=== PATIENT | female | born 1945 ===

== ENCOUNTER 2016-12-03 09:23 | Emergency (ER) | payer MEDICARE ==
[2016-12-03 09:29] VITALS: BMI 40.2
[2016-12-03 09:30] VITALS: BP 121/69; PULSE 74; RESP 19; TEMP 99.3; O2SAT 96
--- NOTE | 2016-12-03 09:58 | ED PDOC ---
Lower Extremity Pain/Injury Time Seen by Provider: 12/03/16 09:40 Chief Complaint (Nursing): Lower Extremity Problem/Injury Chief Complaint (Provider): right ankle pain History Per: Patient History/Exam Limitations: no limitations Onset/Duration Of Symptoms: Days (x3) Current Symptoms Are (Timing): Still Present Severity: Mild Additional Complaint(s): Patient is a 71 year old female presenting to the ED complaining of right ankle pain status post mechanical fall x3 days ago. Patient reports she twisted her right ankle and fell. Patient is ambulatory with pain. Patient has been taking Meloxicam without relief. Denies head trauma. PMD: none - Ankle/Foot Description Of Injury: Fell, Twisted Past Medical History Reviewed: Historical Data, Nursing Documentation, Vital Signs Vital Signs: Last Vital Signs Temp 99.3 F 12/03/16 09:29 Pulse 74 12/03/16 09:29 Resp 19 12/03/16 09:29 BP 121/69 12/03/16 09:29 Pulse Ox 96 12/03/16 09:29 - Medical History PMH: Diabetes, HTN, Hypercholesterolemia Denies: Chronic Kidney Disease - Surgical History Surgical History: Appendectomy - Family History Family History: States: Unknown Family Hx - Home Medications Home Medications: Ambulatory Orders Medication Instructions Recorded Naproxen [Naprosyn] 500 mg PO Q12H PRN #10 tablet 12/03/16 - Allergies Allergies/Adverse Reactions: Allergies Allergy/AdvReac Type Severity Reaction Status Date / Time No Known Allergies Allergy Verified 06/29/16 09:02 Review of Systems ROS Statement: Except As Marked, All Systems Reviewed And Found Negative Constitutional: Negative for: Fever Musculoskeletal: Positive for: Other (rt ankle) Physical Exam - Reviewed Nursing Documentation Reviewed: Yes Vital Signs Reviewed: Yes - Physical Exam Appears: Positive for: Well, Non-toxic, No Acute Distress Head Exam: Positive for: ATRAUMATIC, NORMAL INSPECTION, NORMOCEPHALIC Skin: Positive for: Normal Color, Warm, DRY Neck: Positive for: Normal, Painless ROM Pulses-Dorsalis Pedis (R): 2+ Extremity: Positive for: Tenderness (mild tenderness over the right lateral malleolus -No tend over the base of the 5th metatarsal, medial mal, fibular head, or dorsal aspect of the foot), Swelling (mild edema over the right lateral malleolus), Other (mild edema n dtend over lateral malleousous). Negative for: Normal ROM (mildly reduced ROM secondary to pain), Deformity Neurologic/Psych: Positive for: Alert, Oriented - ECG O2 Sat by Pulse Oximetry: 96 (RA) Pulse Ox Interpretation: Normal Medical Decision Making Medical Decision Making: GILDARDO wrap RICE nsaid pcp f/u PROCEDURE: Right ankle dated the 12/03/2016 HISTORY: fell 3 days ago COMPARISON: Comparison made with prior radiographs of the right ankle dated 03/30/2009. FINDINGS: BONES: The current study reveals no definitive radiographic evidence of acute displaced fracture nor dislocation. . The osseous structures including talar dome appear intact. . JOINTS: No significant osteoarthritis. Ankle mortise maintained. . SOFT TISSUES: There is mild to moderate soft tissue swelling lateral greater than medial. OTHER FINDINGS: None. IMPRESSION: No acute fractures. Mild thumb moderate soft tissue swelling lateral greater than medial. Scribe Attestation: Documented by Everett Pizano acting as a scribe for Austen Durán MD. Scribe Attestation: All medical record entries made by the Scribe were at my direction and personally dictated by me. I have reviewed the chart and agree that the record accurately reflects my personal performance of the history, physical exam, medical decision making, and the department course for this patient. I have also personally directed, reviewed, and agree with the discharge instructions and disposition. Disposition - Clinical Impression Clinical Impression: Ankle sprain - Disposition Disposition Time: 11:56 Condition: STABLE Additional Instructions: Please follow up with your doctor. Return to the ER for any worsening symptoms or for any other concerns. Prescriptions: Naproxen [Naprosyn] 500 mg PO Q12H PRN #10 tablet PRN Reason: Pain, Moderate (4-7) Instructions: Ankle Sprain (ED) Print Language: BRITISH
--- NOTE | 2016-12-03 11:39 | RAD ---
PROCEDURE: Right ankle dated the 12/03/2016 HISTORY: fell 3 days ago COMPARISON: Comparison made with prior radiographs of the right ankle dated 03/30/2009. FINDINGS: BONES: The current study reveals no definitive radiographic evidence of acute displaced fracture nor dislocation. . The osseous structures including talar dome appear intact. . JOINTS: No significant osteoarthritis. Ankle mortise maintained. . SOFT TISSUES: There is mild to moderate soft tissue swelling lateral greater than medial. OTHER FINDINGS: None. IMPRESSION: No acute fractures. Mild thumb moderate soft tissue swelling lateral greater than medial.
== END 2016-12-03 12:20 | disposition home or self-care (01) ==
LOC: H.ER 09:23
DX: S93.401A Sprain of unspecified ligament of right ankle, initial encounter (principal); W19.XXXA Unspecified fall, initial encounter; Y92.89 Other specified places as the place of occurrence of the external cause; E11.9 Type 2 diabetes mellitus without complications; E78.00 Pure hypercholesterolemia, unspecified; I10 Essential (primary) hypertension

== ENCOUNTER 2018-10-01 22:18 | Inpatient (IN) | payer MEDICARE ==
[2018-10-01] MEDS ORDERED: Sodium Chloride 0.9% 1,000 ML IV STA (23:01)
--- NOTE | 2018-10-01 23:03 | ED PDOC ---
Hyperglycemia/Hypoglycemia Time Seen by Provider: 10/01/18 22:45 Chief Complaint (Nursing): High Blood Sugar Chief Complaint (Provider): high blood surgar History Per: Patient, Bell Maker (humza #[id number]) History/Exam Limitations: no limitations Onset/Duration Of Symptoms: Hrs Current Symptoms Are (Timing): Better Current Diabetic Medications: Oral Medication Causative (Exacerbating) Factor(s): Recent Steroids : The patient does not have any of the infectious symptoms listed except for those marked. Additional Complaint(s): 73 y/o female presents for evaluation of high blood sugar x 5 hours. Patient states she got an "injection" in her back today for chronic back pain, and reports her sugars at home since then have been elevated, as high as 650. Patient states she took an extra dose of her Janumet 50/1000mg and an Metformin 500mg at 18:30, then again at 19:30, then again at 20:30 because glucose was not coming down so she decided to come to the ED. Patient denies he adache, dizziness, vision changes, extremity numbness/weakness, nausea/vomiting, chest pain, shortness of breath, palpitations, abdominal pain, urinary symptoms. Past Medical History Reviewed: Historical Data, Nursing Documentation, Vital Signs Vital Signs: Last Vital Signs Temp 98.7 F 10/01/18 22:36 Pulse 96 H 10/01/18 22:36 Resp 18 10/01/18 22:36 BP 124/75 10/01/18 22:36 Pulse Ox 98 10/01/18 22:36 - Medical History PMH: Diabetes, HTN, Hypercholesterolemia Denies: Chronic Kidney Disease - Surgical History Surgical History: Appendectomy - Family History Family History: States: Unknown Family Hx - Home Medications Home Medications: Ambulatory Orders Medication Instructions Recorded Naproxen [Naprosyn] 500 mg PO Q12H PRN #10 tablet 12/03/16 - Allergies Allergies/Adverse Reactions: Allergies Allergy/AdvReac Type Severity Reaction Status Date / Time No Known Allergies Allergy Verified 06/29/16 09:02 Review of Systems ROS Statement: Except As Marked, All Systems Reviewed And Found Negative Physical Exam - Reviewed Nursing Documentation Reviewed: Yes Vital Signs Reviewed: Yes - Physical Exam Appears: Positive for: Well, Non-toxic, No Acute Distress Head Exam: Positive for: ATRAUMATIC, NORMAL INSPECTION, NORMOCEPHALIC Skin: Positive for: Normal Color Eye Exam: Positive for: Normal appearance ENT: Positive for: Normal ENT Inspection Cardiovascular/Chest: Positive for: Regular Rate, Rhythm Respiratory: Positive for: Normal Breath Sounds Gastrointestinal/Abdominal: Positive for: Normal Exam Back: Positive for: Normal Inspection Extremity: Positive for: Normal ROM Neurological/Psych: Positive for: Awake, Alert, Oriented (x3) - Laboratory Results Result Diagrams: 10/01/18 23:20 10/01/18 23:20 - ECG ECG: Positive for: Viewed By Me (reviewed by ED attending) ECG Rhythm: Positive for: Sinus Rhythm, Right Bundle Branch Block O2 Sat by Pulse Oximetry: 98 - Progress ED Course And Treament: -accucheck -cbc -cmp -IV NS bolus RN discussed case with poison control; who recommends adding lactic acid to rule out lactic acidosis from all the metformin ingested Lactic Acid elevated. Glucose trending downward Patient complaining of abdominal cramping and has had two episodes of diarrhea in the ED Case discussed with Dr. Arnett for admission RN update poison control; recommends continuing IV hydration and repeating lactic acid Disposition - Clinical Impression Clinical Impression: Metformin overdose, Lactic acidosis - Patient ED Disposition Is Patient to be Admitted: Yes - Disposition Disposition Time: 02:30 Condition: FAIR
[2018-10-01 23:32] LABS: BASO % 0.6 % (0.0-2.0); HEMOGLOBIN 11.4 g/dL (12.0-16.0); LYMPH # 0.7 K/uL (1.0-4.3); LYMPH % 13.5 % (20.0-40.0); MEAN CELL VOLUME 88.7 fl (81.0-99.0); MEAN CORPUSCULAR HEMOGLOBIN 29.4 pg (27.0-31.0); MEAN CORPUSCULAR HGB CONC 33.2 g/dL (33.0-37.0); MEAN PLATELET VOLUME 7.7 fl (7.2-11.7); MONO # 0.1 K/uL (0.0-0.8); MONO % 1.9 % (0.0-10.0); NEUT # 4.6 K/uL (1.8-7.0); RBC 3.86 Mil/uL (3.80-5.20); RED CELL DISTRIBUTION WIDTH 14.2 % (11.5-14.5); WHITE BLOOD COUNT 5.4 K/uL (4.8-10.8)
[2018-10-01 23:36] LABS: ALB/GLOB RATIO 1.3 (1.0-2.1); ALBUMIN 4.5 g/dL (3.5-5.0); CALCIUM 9.1 mg/dL (8.4-10.2)
[2018-10-02 01:16] LABS: VENOUS BLOOD GAS BASE EXCESS -2.4 mmol/L (0.0-2.0); VENOUS BLOOD GAS PCO2 34 mmHg (40-60); VENOUS BLOOD GAS PO2 73 mm/Hg (30-55); VENOUS BLOOD PH 7.41 (7.32-7.43)
[2018-10-02] MEDS ORDERED: Sodium Chloride 0.9% 1,000 ML IV STA ×2 (01:19→02:40)
[2018-10-02 03:23] VITALS: BMI 38.0
[2018-10-02] MEDS ORDERED: Sodium Chloride 0.45% 1,000 ML IV SCH (06:15)
[2018-10-02 07:06] LABS: HEMOGLOBIN 10.9 g/dL (12.0-16.0); MEAN CORPUSCULAR HEMOGLOBIN 29.7 pg (27.0-31.0); MEAN CORPUSCULAR HGB CONC 33.8 g/dL (33.0-37.0); RBC 3.68 Mil/uL (3.80-5.20); RED CELL DISTRIBUTION WIDTH 14.4 % (11.5-14.5); WHITE BLOOD COUNT 9.9 K/uL (4.8-10.8)
[2018-10-02 07:26] LABS: ALB/GLOB RATIO 1.3 (1.0-2.1); ALBUMIN 4.2 g/dL (3.5-5.0); CALCIUM 8.7 mg/dL (8.4-10.2)
[2018-10-02] MEDS ORDERED: Dextrose 50% SYRINGE Inj (50 ml) IV PRN (07:44)
[2018-10-02] MEDS ORDERED: Glucagon Recombinant 1 mg Inj IM PRN (07:44)
--- NOTE | 2018-10-02 08:29 | CP.PCM.HP ---
History of Present Illness - History of Present Illness History of Present Illness: 73 y/o F with a PMHx of DM2, HTN, HLD, thyroid disorder presented to ED due to increased glucose level last night. Pt was injected with unspecified medication yesterday due to severe back pain Hx. Pt decided to take an extra dose of her diabetic medication, Janumet, and then old Metformin, due to persistent elevated serum sugar levels; however, glucose level continued to be elevated. Pt reports never feeling any symptoms. Pt denies fever, sweating, dizziness, visual disturbances, chest pain, SOB, abdominal pain, N/V/D or rash. --Upon calling pharmacy, medication list: >Lisinopril/HCTZ 20/25mg PO daily >Simvastatin 20mg PO daily >Janumet 50-100mg, 1 tab BID >Metoprolol Succinate 25mg PO daily >Omeprazole 40mg PO daily >Levothyroxine 75mcg >Vascepa 0.5mg cap, take 2 caps BID. >Victoza 18mg/3ml, SC 1.8mg daily. (NOT taking) --Pt was asked which medications she takes, pt takes all medication with exception of injected one and takes Janumet once a day. Pt usually takes 1 tab of Janumet daily and when glucose is >180 at nighttime, pt takes another dose of Janumet. PMD: Ac [place]. NKDA PMHx: DM2, HTN, HLD, hypothyroidism, and hypertriglyceridemia. PSHx: 1 at age 35, appendectomy at age 36. FHx: Sister and mother with DM2. SHx: Never smoker, no alcohol and no rec drugs. Present on Admission - Present on Admission Any Indicators Present on Admission: No History of DVT/PE: No Review of Systems - Constitutional Constitutional: absent: Anorexia, Chills, Fever - EENT Nose/Mouth/Throat: absent: Epistaxis, Nasal Congestion, Sore Throat, Neck Pain, Neck Mass - Cardiovascular Cardiovascular: absent: Chest Pain, Dyspnea, Edema - Respiratory Respiratory: absent: Cough, Dyspnea, Hemoptysis, Dyspnea on Exertion - Gastrointestinal Gastrointestinal: absent: Abdominal Pain, Diarrhea, Nausea, Vomiting - Genitourinary Genitourinary: absent: Dysuria, Hematuria, Nocturia - Musculoskeletal Musculoskeletal: Back Pain. absent: Neck Pain Past Patient History - Past Medical History & Family History Past Medical History?: Yes - Past Social History Smoking Status: Never Smoked - CARDIAC Hx Cardiac Disorders: Yes (HTN, CHOLESTEROL) - PULMONARY Hx Respiratory Disorders: No - NEUROLOGICAL Hx Neurological Disorder: No - HEENT Hx HEENT Problems: No - RENAL Hx Chronic Kidney Disease: No - ENDOCRINE/METABOLIC Hx Endocrine Disorders: Yes (DM, HYPERTHYROIDISM) - HEMATOLOGICAL/ONCOLOGICAL Hx Blood Disorders: No - INTEGUMENTARY Hx Dermatological Problems: No - MUSCULOSKELETAL/RHEUMATOLOGICAL Hx Musculoskeletal Disorders: No - GASTROINTESTINAL Hx Gastrointestinal Disorders: No - GENITOURINARY/GYNECOLOGICAL Hx Genitourinary Disorders: No - PSYCHIATRIC Hx Psychophysiologic Disorder: No - SURGICAL HISTORY Hx Appendectomy: Yes - ANESTHESIA Hx Anesthesia: Yes Hx Anesthesia Reactions: No Hx Malignant Hyperthermia: No Meds Allergies/Adverse Reactions: Allergies Allergy/AdvReac Type Severity Reaction Status Date / Time No Known Allergies Allergy Verified 06/29/16 09:02 Physical Exam - Constitutional Appears: No Acute Distress - Head Exam Head Exam: ATRAUMATIC, NORMAL INSPECTION - Eye Exam Eye Exam: EOMI, Normal appearance - ENT Exam ENT Exam: Mucous Membranes Moist - Neck Exam Neck exam: Positive for: Full Rom, Normal Inspection. Negative for: Meningismus - Respiratory Exam Respiratory Exam: Clear to Auscultation Bilateral, NORMAL BREATHING PATTERN - Cardiovascular Exam Cardiovascular Exam: REGULAR RHYTHM, +S1, +S2 - GI/Abdominal Exam GI & Abdominal Exam: Soft. absent: Distended, Guarding, Rebound, Tenderness - Extremities Exam Extremities exam: Positive for: full ROM. Negative for: calf tenderness - Back Exam Back exam: absent: CVA tenderness (L), CVA tenderness (R) - Neurological Exam Neurological exam: Alert, Oriented x3 Results - Vital Signs Recent Vital Signs: Last Vital Signs Temp 97.7 F 10/02/18 07:52 Pulse 73 10/02/18 07:52 Resp 20 10/02/18 07:52 BP 123/69 10/02/18 07:52 Pulse Ox 97 10/02/18 07:52 - Labs Result Diagrams: 10/02/18 06:45 10/02/18 06:45 Labs: Laboratory Results - last 24 hr 10/01/18 10/01/18 10/01/18 22:32 23:20 23:20 WBC 5.4 RBC 3.86 Hgb 11.4 L Hct 34.3 MCV 88.7 MCH 29.4 MCHC 33.2 RDW 14.2 Plt Count 273 MPV 7.7 Neut % (Auto) 84.0 H Lymph % (Auto) 13.5 L Forrest % (Auto) 1.9 Eos % (Auto) 0.0 Baso % (Auto) 0.6 Neut # (Auto) 4.6 Lymph # (Auto) 0.7 L Forrest # (Auto) 0.1 Eos # (Auto) 0.0 Baso # (Auto) 0.0 pO2 VBG pH VBG pCO2 VBG HCO3 VBG Total CO2 VBG O2 Sat (Calc) VBG Base Excess VBG Potassium Glucose Lactate FiO2 Crit Value Called To Crit Value Called By Crit Value Read Back Blood Gas Notified Time Sodium 138 Potassium 3.8 Chloride 100 Carbon Dioxide 20 L Anion Gap 22 H BUN 31 H Creatinine 1.4 H Est GFR ( Amer) 45 Est GFR (Non-Af Amer) 37 POC Glucose (mg/dL) 329 H Random Glucose 307 H Lactic Acid Calcium 9.1 Total Bilirubin 0.3 AST 36 ALT 27 Alkaline Phosphatase 55 Total Protein 7.8 Albumin 4.5 Globulin 3.3 Albumin/Globulin Ratio 1.3 Triglycerides Cholesterol LDL Cholesterol Direct HDL Cholesterol TSH 3rd Generation Venous Blood Potassium 10/02/18 10/02/18 10/02/18 00:34 01:12 01:35 WBC RBC Hgb Hct MCV MCH MCHC RDW Plt Count MPV Neut % (Auto) Lymph % (Auto) Forrest % (Auto) Eos % (Auto) Baso % (Auto) Neut # (Auto) Lymph # (Auto) Forrest # (Auto) Eos # (Auto) Baso # (Auto) pO2 73 H VBG pH 7.41 VBG pCO2 34 L VBG HCO3 23.0 VBG Total CO2 22.6 VBG O2 Sat (Calc) 97.7 H VBG Base Excess -2.4 L VBG Potassium 3.8 Glucose 220 H Lactate 4.8 H* FiO2 21.0 Crit Value Called To [place] woods Crit Value Called By 292 Crit Value Read Back Y Blood Gas Notified Time 116 Sodium 139.0 Potassium Chloride 106.0 Carbon Dioxide Anion Gap BUN Creatinine Est GFR ( Amer) Est GFR (Non-Af Amer) POC Glucose (mg/dL) 215 H Random Glucose Lactic Acid 4.4 H* Calcium Total Bilirubin AST ALT Alkaline Phosphatase Total Protein Albumin Globulin Albumin/Globulin Ratio Triglycerides Cholesterol LDL Cholesterol Direct HDL Cholesterol TSH 3rd Generation Venous Blood Potassium 3.8 10/02/18 10/02/18 10/02/18 02:23 04:30 06:14 WBC RBC Hgb Hct MCV MCH MCHC RDW Plt Count MPV Neut % (Auto) Lymph % (Auto) Forrest % (Auto) Eos % (Auto) Baso % (Auto) Neut # (Auto) Lymph # (Auto) Forrest # (Auto) Eos # (Auto) Baso # (Auto) pO2 VBG pH VBG pCO2 VBG HCO3 VBG Total CO2 VBG O2 Sat (Calc) VBG Base Excess VBG Potassium Glucose Lactate FiO2 Crit Value Called To Crit Value Called By Crit Value Read Back Blood Gas Notified Time Sodium Potassium Chloride Carbon Dioxide Anion Gap BUN Creatinine Est GFR ( Amer) Est GFR (Non-Af Amer) POC Glucose (mg/dL) 199 H 174 H Random Glucose Lactic Acid 3.7 H Calcium Total Bilirubin AST ALT Alkaline Phosphatase Total Protein Albumin Globulin Albumin/Globulin Ratio Triglycerides Cholesterol LDL Cholesterol Direct HDL Cholesterol TSH 3rd Generation Venous Blood Potassium 10/02/18 10/02/18 06:45 06:45 WBC 9.9 D RBC 3.68 L Hgb 10.9 L Hct 32.4 L MCV 88.0 MCH 29.7 MCHC 33.8 RDW 14.4 Plt Count 269 MPV Neut % (Auto) Lymph % (Auto) Forrest % (Auto) Eos % (Auto) Baso % (Auto) Neut # (Auto) Lymph # (Auto) Forrest # (Auto) Eos # (Auto) Baso # (Auto) pO2 VBG pH VBG pCO2 VBG HCO3 VBG Total CO2 VBG O2 Sat (Calc) VBG Base Excess VBG Potassium Glucose Lactate FiO2 Crit Value Called To Crit Value Called By Crit Value Read Back Blood Gas Notified Time Sodium 140 Potassium 4.0 Chloride 105 Carbon Dioxide 21 L Anion Gap 18 BUN 34 H Creatinine 1.8 H Est GFR ( Amer) 33 Est GFR (Non-Af Amer) 28 POC Glucose (mg/dL) Random Glucose 168 H Lactic Acid Calcium 8.7 Total Bilirubin 0.3 AST 33 ALT 24 Alkaline Phosphatase 53 Total Protein 7.3 Albumin 4.2 Globulin 3.1 Albumin/Globulin Ratio 1.3 Triglycerides 166 H Cholesterol 208 H LDL Cholesterol Direct 120 HDL Cholesterol 47 TSH 3rd Generation 0.88 Venous Blood Potassium Assessment & Plan - Assessment and Plan (Free Text) Assessment: 73 y/o F with a PMHx of DM2, HTN, HLD and hypothyroidism was admitted for evaluation and management of hyperglycemia and lactic acidosis suspected to be due to Metformin overdose. PLAN: >Lactic Acidosis --Afebrile, vital signs stable. --Suspicion of Metformin overdose --Serum lactate: 4.4 @1am -> 3.7 @4:30am -> 2.8 @10am. --IV hydration: NS at 150mL/hr --Repeat lactic acid level. --Endocrinology consult, Dr Ibarra. --F/U poisom control recommendations. >DM2 with hyperglycemia --Chronic --Hold Janumet due to lactic acidosis. --Januvia on hold due to NICK. --F/U HbA1c. >Acute Kidney Injury --Serum creatinine increased. --Likely dehydration. --Continue IV hydration. --Monitor BMP >Normocytic anemia --Unknown etiology. Possibly dietary deficiency. --Iron panel, ferritin, vitamin b12, folate and FOBT were ordered. --Monitor CBC >HLD --Home med resumed except for Vascepa which is unable. --Pt instructed to bring medication from home. >HTN --Hold home BP medications as BP is WNL. --Monitor vitals. >Hypothyroidism --Home med resumed: Levothyroxine 75mcg --Thyroid panel bloodwork ordered. >DVT Prophylaxis --Lovenox 30mg SC daily due to NICK. Case discussed with Dr Amin. Grier PGY-2
--- NOTE | 2018-10-02 08:57 | CARD ---
APPROVED REPORT Date of service: 10/02/2018 EKG Measurement Heart [id number] <Conclusion> Normal sinus rhythm Right bundle branch block Abnormal ECG
[2018-10-02] MEDS: Sodium Chloride 0.45% 1,000 ML IV SCH ×3 (09:25→23:31)
[2018-10-02] MEDS: Enoxaparin 30 mg Syringe SC SCH (09:26)
[2018-10-02] MEDS ORDERED: Insulin Lispro (humaLOG) 100 Units/ml Inj SC SCH ×2 (10:00→12:00)
[2018-10-02 11:18] LABS: T3 0.573 nmol/L (1.49-2.60)
[2018-10-02] MEDS: Insulin Lispro (humaLOG) 100 Units/ml Inj SC SCH ×2 (17:00→23:27)
--- NOTE | 2018-10-03 05:40 | CON ---
DATE: 10/02/2018 ENDOCRINOLOGY CONSULTATION LOCATION: Room 404. HISTORY OF PRESENT ILLNESS: This is a 73-year-old female with known history of type 2 diabetes and hypertension, presenting here with generalized body weakness and supervening dizziness and lightheadedness with concomitant hyperglycemic accelerations and is now being referred for diabetic evaluation and management because of an apparent overdose of metformin therapy with supervening lactic acidosis. PAST MEDICAL HISTORY: As mentioned above, history of type 2 diabetes, on Janumet taken as once daily and occasionally b.i.d. as per the patient; history of hypertension and dyslipidemia; history of hypothyroidism, on levothyroxine replacement therapy; history of underlying obesity; also history of hypertension and dyslipidemia as mentioned, controlled with medications. FAMILY HISTORY: Positive for hypertension and diabetes. SOCIAL HISTORY: The patient has a supportive family. No known substance use. REVIEW OF SYSTEMS: As mentioned above, admits to sudden onset of generalized body weakness with dizziness and lightheadedness, worse in the last two to three days prior to admission. No chest pains or palpitations. Her oral intake has been variable with nausea and dyspepsia and vague upper abdominal pains. Denies any bloatedness or abdominal cramps or diarrhea over the last week or so prior to admission. PHYSICAL EXAMINATION: GENERAL: This is an obese female, in no apparent distress. VITAL SIGNS: Blood pressure 150/90, pulse of 100 beats per minute and regular, temperature 98, respirations 20. Height is 5 feet. Weight is 195 pounds. HEENT: Head: Normocephalic. Eyes: Anicteric with pink conjunctivae. Funduscopy not possible at this time. Ears, nose and throat otherwise normal. NECK: Supple. Thyroid gland is normal in size. No carotid bruits or any cervical adenopathy. CARDIOPULMONARY: Some adynamic precordium. S1 and S2 are rapid and regular. LUNGS: Clear to auscultation. ABDOMEN: Obese, soft with positive bowel sounds. EXTREMITIES: No peripheral edema. Pulses are +2 bilaterally. LABORATORY DATA: Lactic acid today is 2.8. It was apparently over 4 on admission. Her A1c is 6.9%. Chemistry: BUN of 34, sodium 140, potassium 4, chloride 105, CO2 of 21, glucose 168 and creatinine is 1.8. Her T4 is 7.72 with a TSH of 0.88 and a T3 of 0.57. Her cholesterol is 208, triglycerides 166. ASSESSMENT: This is a 73-year-old obese female with known history of type 2 diabetes and near optimal metabolic control, presenting here with apparent hyperglycemic accelerations over the past week or so with the patient doubling her dose of Janumet given as twice a day with an apparent additional intake of metformin given as 1 g twice a day a few days prior to admission. Biochemically, she has evidence of mild lactic acidosis with underlying renal insufficiency with both dehydration and prerenal azotemia as noted thereof. It is quite extremely uncommon for the patients to develop lactic acidosis in this particular clinical scenario as noted and also with recent apparent overdose of metformin over the last two to three days prior to admission. PLAN OF MANAGEMENT: Concur with the vigorous IV hydration as given to replenish the lost fluids and electrolytes, especially with the increased osmotic diuresis thereof and also the biochemical evidence of dehydration and prerenal azotemia with progressive renal insufficiency as noted. We will certainly hold off the resumption of metformin therapy and even of Janumet medications for the next week or so until the resolution of her lactic acidosis and also the improvement her renal function. We will add Januvia at 100 mg once daily starting tomorrow morning in addition of glipizide as indicated. We will obtain serial chemistries and supplement accordingly as needed. We will follow. Cecy Ibarra MD
[2018-10-03] MEDS: Sodium Chloride 0.45% 1,000 ML IV SCH (05:43)
[2018-10-03 06:08] LABS: HEMOGLOBIN 9.8 g/dL (12.0-16.0); MEAN CELL VOLUME 88.5 fl (81.0-99.0); MEAN CORPUSCULAR HEMOGLOBIN 29.8 pg (27.0-31.0); MEAN CORPUSCULAR HGB CONC 33.7 g/dL (33.0-37.0); RBC 3.27 Mil/uL (3.80-5.20); RED CELL DISTRIBUTION WIDTH 14.6 % (11.5-14.5); WHITE BLOOD COUNT 7.6 K/uL (4.8-10.8)
[2018-10-03 06:20] LABS: ALB/GLOB RATIO 1.3 (1.0-2.1); ALBUMIN 3.5 g/dL (3.5-5.0)
[2018-10-03] MEDS ORDERED: Levothyroxine 75 MCG TAB PO SCH (06:30)
--- NOTE | 2018-10-03 08:06 | CP.PCM.PN ---
Subjective - Date & Time of Evaluation Date of Evaluation: 10/03/18 Time of Evaluation: 06:50 - Subjective Subjective: 73 y/o F was seen and examined by bedside with Dr Arnett, pt reports feeling well with NO complaints. Pt afebrile, tolerating PO with NO acute events overnight. Objective - Vital Signs/Intake and Output Vital Signs (last 24 hours): Temp Pulse Resp BP Pulse Ox 98.4 F 74 18 142/62 96 10/03/18 05:23 10/03/18 05:23 10/03/18 05:23 10/03/18 05:23 10/03/18 05:23 - Medications Medications: Current Medications Acetaminophen (Tylenol 325mg Tab) 650 mg PO Q6 PRN PRN Reason: Pain, severe (8-10) Atorvastatin Calcium (Lipitor) 10 mg PO HS [facility] Last Admin: 10/02/18 22:05 Dose: 10 mg Dextrose (Dextrose 50% Inj) 0 ml IV STAT PRN; Protocol PRN Reason: Hypoglycemia Protocol Dextrose (Glutose 15) 0 gm PO ONCE PRN; Protocol PRN Reason: Hypoglycemia Protocol Enoxaparin Sodium (Lovenox) 30 mg SC DAILY [facility]; Protocol Last Admin: 10/02/18 09:26 Dose: 30 mg Glucagon (Glucagen Diagnostic Kit) 0 mg IM STAT PRN; Protocol PRN Reason: Hypoglycemia Protocol Sodium Chloride (Sodium Chloride 0.9%) 1,000 mls @ 150 mls/hr IV .Q6H40M [facility] Stop: 10/04/18 07:48 Insulin Human Lispro (Humalog) 0 units SC ACHS [facility]; Protocol Last Admin: 10/02/18 23:27 Dose: Not Given Levothyroxine Sodium (Synthroid) 75 mcg PO DAILY@0630 [facility] Last Admin: 10/03/18 05:41 Dose: 75 mcg Pantoprazole Sodium (Protonix Ec Tab) 40 mg PO DAILY [facility] Sitagliptin Phosphate (Januvia) 100 mg PO DAILY [facility] - Labs Labs: 10/03/18 05:12 10/03/18 05:12 - Additional Findings Additional findings: - Constitutional Appears: No Acute Distress - Head Exam Head Exam: ATRAUMATIC, NORMAL INSPECTION - Eye Exam Eye Exam: EOMI, Normal appearance - ENT Exam ENT Exam: Mucous Membranes Moist - Neck Exam Neck exam: Positive for: Full Rom, Normal Inspection. Negative for: Meningismus - Respiratory Exam Respiratory Exam: Clear to Auscultation Bilateral, NORMAL BREATHING PATTERN - Cardiovascular Exam Cardiovascular Exam: REGULAR RHYTHM, +S1, +S2 - GI/Abdominal Exam GI & Abdominal Exam: Soft. absent: Distended, Guarding, Rebound, Tenderness - Extremities Exam Extremities exam: Positive for: full ROM. Negative for: calf tenderness - Back Exam Back exam: absent: CVA tenderness (L), CVA tenderness (R) - Neurological Exam Neurological exam: Alert, Oriented x3 Assessment and Plan - Assessment and Plan (Free Text) Assessment: 73 y/o F with a PMHx of DM2, HTN, HLD and hypothyroidism was admitted for evaluation and management of hyperglycemia and lactic acidosis suspected to be due to Metformin overdose. PLAN: >Acute Kidney Injury --Serum creatinine increasing, vitamin D low. --GFR 26; Creat Clearance: 26 (Stage 4) --Continue IV hydration. --Nephrology consult, Dr Hanson. --Monitor BMP >Lactic Acidosis --Resolved, today's lactate 2.0-WNL. --Vital signs stable. --IV hydration: NS at 150mL/hr --Endocrinology on board, Dr Ibarra. >DM2 with hyperglycemia --Chronic --HbA1c 6.9-controlled. --Endocrinology on board, Dr Ibarra. --Januvia 100mg PO initiated. >?Hypocalcemia/Vitamin D deficiency --Serum Ca++ 8.0-low --possibly CKD. --Albumin 3.5-borderline WNL --Corrected Ca++ 8.4-borderline WNL --Monitor BMP >Normocytic anemia --Unknown etiology. Possibly dietary deficiency. --Iron panel, ferritin, vitamin b12, folate and FOBT were ordered. --Monitor CBC >HLD --Home med resumed except for Vascepa which is unable. --Pt instructed to bring medication from home. >HTN --Hold home BP medications. --Lisinopril and HCTZ on hold due to NICK/?CKD. --Monitor vitals. >Hypothyroidism --Home med resumed: Levothyroxine 75mcg --Thyroid panel - unremarkable. >DVT Prophylaxis --Lovenox 30mg SC daily due to GFR<30. Case discussed with Dr Amin. Grier PGY-2
[2018-10-03] MEDS ORDERED: Pantoprazole 40 mg EC Tab PO SCH (09:00)
[2018-10-03] MEDS: Insulin Lispro (humaLOG) 100 Units/ml Inj SC SCH ×2 (09:38→12:50)
[2018-10-03] MEDS: Enoxaparin 30 mg Syringe SC SCH (09:40)
[2018-10-03] MEDS: Sodium Chloride 0.9% 1,000 ML IV SCH ×2 (09:42→16:16)
--- NOTE | 2018-10-03 10:15 | CP.PCM.CON ---
History of Present Illness - History of Present Illness History of Present Illness: This 73 years of age female I was called to see her for abnormal kidney function. Patient is not giving good history however the chart was reviewed in the medical record indicated the following history 73 y/o F with a PMHx of DM2, HTN, HLD, thyroid disorder presented to ED due to increased glucose level last night. Pt was injected with unspecified medication yesterday due to severe back pain Hx. Pt decided to take an extra dose of her diabetic medication, Janumet, and then old Metformin, due to persistent elevated serum sugar levels; however, glucose level continued to be elevated. Pt reports never feeling any symptoms. Pt denies fever, sweating, dizziness, visual disturbances, chest pain, SOB, abdominal pain, N/V/D or rash. --Upon calling pharmacy, medication list: >Lisinopril/HCTZ 20/25mg PO daily >Simvastatin 20mg PO daily >Janumet 50-100mg, 1 tab BID >Metoprolol Succinate 25mg PO daily >Omeprazole 40mg PO daily >Levothyroxine 75mcg >Vascepa 0.5mg cap, take 2 caps BID. >Victoza 18mg/3ml, SC 1.8mg daily. (NOT taking) --Pt was asked which medications she takes, pt takes all medication with exception of injected one and takes Janumet once a day. Pt usually takes 1 tab of Janumet daily and when glucose is >180 at nighttime, pt takes another dose of Janumet. NKDA PMHx: DM2, HTN, HLD, hypothyroidism, and hypertriglyceridemia. PSHx: 1 at age 35, appendectomy at age 36. FHx: Sister and mother with DM2. SHx: Never smoker, no alcohol and no rec drugs. Review of Systems - Constitutional Constitutional: Anorexia. absent: Chills - EENT Eyes: As Per HPI. absent: Exophthalmos Nose/Mouth/Throat: absent: Epistaxis - Cardiovascular Cardiovascular: absent: Acrocyanosis, Dyspnea, Leg Edema, Leg Ulcers - Respiratory Respiratory: absent: Cough, Dyspnea, Hemoptysis - Gastrointestinal Gastrointestinal: absent: Abdominal Pain, Coffee Ground Emesis, Vomiting - Genitourinary Genitourinary: absent: Hematuria, Nocturia - Musculoskeletal Musculoskeletal: absent: Abnormal Gait, Back Pain, Numbness - Integumentary Integumentary: absent: Acne - Neurological Neurological: As Per HPI - Psychiatric Psychiatric: Change in Appetite - Endocrine Endocrine: Fatigue - Hematologic/Lymphatic Hematologic: absent: Easy Bleeding Past Patient History - Past Medical History & Family History Past Medical History?: Yes - Past Social History Smoking Status: Never Smoked - CARDIAC Hx Cardiac Disorders: Yes (HTN, CHOLESTEROL) - PULMONARY Hx Respiratory Disorders: No - NEUROLOGICAL Hx Neurological Disorder: No - HEENT Hx HEENT Problems: No - RENAL Hx Chronic Kidney Disease: No - ENDOCRINE/METABOLIC Hx Endocrine Disorders: Yes (DM, HYPERTHYROIDISM) - HEMATOLOGICAL/ONCOLOGICAL Hx Blood Disorders: No - INTEGUMENTARY Hx Dermatological Problems: No - MUSCULOSKELETAL/RHEUMATOLOGICAL Hx Musculoskeletal Disorders: No - GASTROINTESTINAL Hx Gastrointestinal Disorders: No - GENITOURINARY/GYNECOLOGICAL Hx Genitourinary Disorders: No - PSYCHIATRIC Hx Psychophysiologic Disorder: No - SURGICAL HISTORY Hx Appendectomy: Yes - ANESTHESIA Hx Anesthesia: Yes Hx Anesthesia Reactions: No Hx Malignant Hyperthermia: No Meds Allergies/Adverse Reactions: Allergies Allergy/AdvReac Type Severity Reaction Status Date / Time No Known Allergies Allergy Verified 06/29/16 09:02 - Medications Medications: Current Medications Acetaminophen (Tylenol 325mg Tab) 650 mg PO Q6 PRN PRN Reason: Pain, severe (8-10) Atorvastatin Calcium (Lipitor) 10 mg PO HS [facility] Last Admin: 10/02/18 22:05 Dose: 10 mg Dextrose (Dextrose 50% Inj) 0 ml IV STAT PRN; Protocol PRN Reason: Hypoglycemia Protocol Dextrose (Glutose 15) 0 gm PO ONCE PRN; Protocol PRN Reason: Hypoglycemia Protocol Enoxaparin Sodium (Lovenox) 30 mg SC DAILY [facility]; Protocol Last Admin: 10/03/18 09:40 Dose: 30 mg Glucagon (Glucagen Diagnostic Kit) 0 mg IM STAT PRN; Protocol PRN Reason: Hypoglycemia Protocol Sodium Chloride (Sodium Chloride 0.9%) 1,000 mls @ 150 mls/hr IV .Q6H40M [facility] Stop: 10/04/18 07:48 Last Admin: 10/03/18 09:42 Dose: Not Given Insulin Human Lispro (Humalog) 0 units SC ACHS [facility]; Protocol Last Admin: 10/03/18 09:38 Dose: Not Given Levothyroxine Sodium (Synthroid) 75 mcg PO DAILY@0630 [facility] Last Admin: 10/03/18 05:41 Dose: 75 mcg Pantoprazole Sodium (Protonix Ec Tab) 40 mg PO DAILY [facility] Last Admin: 10/03/18 09:41 Dose: 40 mg Sitagliptin Phosphate (Januvia) 100 mg PO DAILY [facility] Last Admin: 10/03/18 09:40 Dose: 100 mg Physical Exam - Constitutional Appears: No Acute Distress - Eye Exam Eye Exam: Conjunctival injection - ENT Exam ENT Exam: Mucous Membranes Moist - Neck Exam Neck exam: Negative for: Lymphadenopathy - Respiratory Exam Respiratory Exam: NORMAL BREATHING PATTERN. absent: Chest Wall Tenderness, Rhonchi - Cardiovascular Exam Cardiovascular Exam: absent: Gallop, JVD, Rubs - GI/Abdominal Exam GI & Abdominal Exam: Normal Bowel Sounds. absent: Guarding - Extremities Exam Extremities exam: Negative for: calf tenderness - Back Exam Back exam: absent: CVA tenderness (L), CVA tenderness (R) - Neurological Exam Neurological exam: Alert - Psychiatric Exam Psychiatric exam: Normal Affect Results - Vital Signs Recent Vital Signs: Last Vital Signs Temp 98.1 F 10/03/18 08:59 Pulse 74 10/03/18 08:59 Resp 20 10/03/18 08:59 BP 122/72 10/03/18 08:59 Pulse Ox 94 L 10/03/18 08:59 - Labs Result Diagrams: 10/03/18 05:12 10/03/18 05:12 Labs: Laboratory Results - last 24 hr 10/02/18 10/02/18 10/02/18 06:45 10:00 10:00 WBC RBC Hgb Hct MCV MCH MCHC RDW Plt Count Retic Count Sodium Potassium Chloride Carbon Dioxide Anion Gap BUN Creatinine Est GFR ( Amer) Est GFR (Non-Af Amer) POC Glucose (mg/dL) Random Glucose Hemoglobin A1c 6.9 H Lactic Acid 2.8 H Calcium Iron TIBC % Saturation Ferritin 65.0 Total Bilirubin AST ALT Alkaline Phosphatase Total Protein Albumin Globulin Albumin/Globulin Ratio Vitamin B12 343 25-OH Vitamin D Total Thyroxine (T4) 7.72 Total T3 0.573 L 10/02/18 10/02/18 10/02/18 11:16 11:20 15:50 WBC RBC Hgb Hct MCV MCH MCHC RDW Plt Count Retic Count Sodium Potassium Chloride Carbon Dioxide Anion Gap BUN Creatinine Est GFR ( Amer) Est GFR (Non-Af Amer) POC Glucose (mg/dL) 194 H 161 H Random Glucose Hemoglobin A1c Lactic Acid Calcium Iron 66 TIBC 301 % Saturation 22 Ferritin Total Bilirubin AST ALT Alkaline Phosphatase Total Protein Albumin Globulin Albumin/Globulin Ratio Vitamin B12 25-OH Vitamin D Total 18.1 L Thyroxine (T4) Total T3 10/02/18 10/03/18 10/03/18 21:03 05:12 05:12 WBC 7.6 RBC 3.27 L Hgb 9.8 L Hct 28.9 L MCV 88.5 MCH 29.8 MCHC 33.7 RDW 14.6 H Plt Count 231 Retic Count Sodium 138 Potassium 3.7 Chloride 106 Carbon Dioxide 22 Anion Gap 14 BUN 36 H Creatinine 1.9 H Est GFR ( Amer) 31 Est GFR (Non-Af Amer) 26 POC Glucose (mg/dL) 169 H Random Glucose 126 H Hemoglobin A1c Lactic Acid Calcium 8.0 L Iron TIBC % Saturation Ferritin Total Bilirubin 0.2 AST 17 ALT 23 Alkaline Phosphatase 36 L D Total Protein 6.2 L Albumin 3.5 Globulin 2.8 Albumin/Globulin Ratio 1.3 Vitamin B12 25-OH Vitamin D Total Thyroxine (T4) Total T3 10/03/18 10/03/18 10/03/18 05:12 05:12 05:23 WBC RBC Hgb Hct MCV MCH MCHC RDW Plt Count Retic Count 2.1 H Sodium Potassium Chloride Carbon Dioxide Anion Gap BUN Creatinine Est GFR ( Amer) Est GFR (Non-Af Amer) POC Glucose (mg/dL) 117 H Random Glucose Hemoglobin A1c Lactic Acid 2.0 Calcium Iron TIBC % Saturation Ferritin Total Bilirubin AST ALT Alkaline Phosphatase Total Protein Albumin Globulin Albumin/Globulin Ratio Vitamin B12 25-OH Vitamin D Total Thyroxine (T4) Total T3 Assessment & Plan (1) NICK (acute kidney injury) Assessment and Plan: Acute kidney injury most likely are related to multifactorial patient was taken lisinopril and hydrochlorothiazide she might be dehydrated somewhat initially with all the risk factors perhaps cause acute kidney injury. Lactic acidosis apparently has been corrected Diabetes mellitus Recommendation Urinalysis because there is no urinalysis in the chart yet Stat spot urine for sodium osmolarity and creatinine gentle hydration Status: Acute (2) Lactic acidosis Status: Acute (3) Metformin overdose Status: Acute
[2018-10-03 13:18] VITALS: RESP 16
[2018-10-03 13:43] LABS: SQUAMOUS EPITHIAL < 1 /hpf (0-5); URINE BILIRUBIN NEGATIVE (NEGATIVE); URINE BLOOD NEGATIVE (NEGATIVE); URINE CLARITY CLEAR (Clear); URINE COLOR STRAW (YELLOW); URINE GLUCOSE (UA) NEG (NEGATIVE); URINE LEUKOCYTE ESTERASE NEG Leu/uL (Negative); URINE PROTEIN NEGATIVE (NEGATIVE); URINE UROBILINOGEN 0.2-1.0 mg/dL (0.2-1.0)
[2018-10-03 16:42] VITALS: BP 103/58; PULSE 66; TEMP 98.5; O2SAT 97
--- NOTE | 2018-10-03 20:06 | PN ---
DATE: 10/03/2018 ENDOCRINOLOGY FOLLOWUP NOTE LOCATION: In room 404. SUBJECTIVE: This is a 73-year-old female with recent uncontrolled type 2 diabetes, presenting here with an apparent overdosing of metformin intake done inadvertently with the patient having recent hyperglycemic accelerations and taking her extra metformin therapy besides the Janumet therapy as prescribed by her current physician. Her initial lactic acid was 4.4 and the repeat level now is 2 as noted. Her glucose values have improved overnight and have ranged from 117-135 mg/dL. Her A1c is near optimal at 6.9%. Her chemistry showed a BUN of 36, sodium 138, potassium 3.7, chloride 106, CO2 of 22, glucose 126, and creatinine 1.9. ASSESSMENT: This is a 73-year-old female with lactic acidosis, most likely related to the recent over-replacement and overdosing of her metformin therapy given as metformin alone and in combination with Janumet, which is a combo of Januvia and metformin therapy on the day of admission. PLAN OF MANAGEMENT: We will continue the resumption of her of her metformin therapy at this time, not only because of the progressive renal insufficiency, but also because of the possible repeat attempts of the patient to take metformin once again on the outpatient. We will continue her Januvia given as 100 mg once daily as ordered. We will obtain serial chemistries and supplement accordingly as needed. We will also continue the vigorous IV hydration as ordered. We will follow. Cecy Ibarra MD
--- NOTE | 2018-10-04 08:56 | CP.PCM.DIS ---
Provider - Provider Date of Admission: 10/02/18 01:58 Attending physician: Erlin Arnett MD Primary care physician: Ac Rich. Consults: 10/02/18 09:22 Endocrinology Consult Routine Comment: Consulting Provider: Cecy Ibarra Consulting Physician: Cecy Ibarra Reason for Consult: DM, metformin overdose 10/02/18 14:58 Nephrology Consult Routine Comment: Consulting Provider: Noe Hanson Consulting Physician: Noe Hanson Reason for Consult: lactic acidosis 2nd metformin, ARF Time Spent in preparation of Discharge (in minutes): 30 Hospital Course - Lab Results Lab Results: Most Recent Lab Values WBC 7.6 K/uL (4.8-10.8) 10/03/18 05:12 RBC 3.27 Mil/uL (3.80-5.20) L 10/03/18 05:12 Hgb 9.8 g/dL (12.0-16.0) L 10/03/18 05:12 Hct 28.9 % (34.0-47.0) L 10/03/18 05:12 MCV 88.5 fl (81.0-99.0) 10/03/18 05:12 MCH 29.8 pg (27.0-31.0) 10/03/18 05:12 MCHC 33.7 g/dL (33.0-37.0) 10/03/18 05:12 RDW 14.6 % (11.5-14.5) H 10/03/18 05:12 Plt Count 231 K/uL (130-400) 10/03/18 05:12 MPV 7.7 fl (7.2-11.7) 10/01/18 23:20 Neut % (Auto) 84.0 % (50.0-75.0) H 10/01/18 23:20 Lymph % (Auto) 13.5 % (20.0-40.0) L 10/01/18 23:20 Mower % (Auto) 1.9 % (0.0-10.0) 10/01/18 23:20 Eos % (Auto) 0.0 % (0.0-4.0) 10/01/18 23:20 Baso % (Auto) 0.6 % (0.0-2.0) 10/01/18 23:20 Neut # (Auto) 4.6 K/uL (1.8-7.0) 10/01/18 23:20 Lymph # (Auto) 0.7 K/uL (1.0-4.3) L 10/01/18 23:20 Mower # (Auto) 0.1 K/uL (0.0-0.8) 10/01/18 23:20 Eos # (Auto) 0.0 K/uL (0.0-0.7) 10/01/18 23:20 Baso # (Auto) 0.0 K/uL (0.0-0.2) 10/01/18 23:20 Retic Count 2.1 % (0.5-1.5) H 10/03/18 05:12 pO2 73 mm/Hg (30-55) H 10/02/18 01:12 VBG pH 7.41 (7.32-7.43) 10/02/18 01:12 VBG pCO2 34 mmHg (40-60) L 10/02/18 01:12 VBG HCO3 23.0 mmol/L 10/02/18 01:12 VBG Total CO2 22.6 mmol/L (22-28) 10/02/18 01:12 VBG O2 Sat (Calc) 97.7 % (40-65) H 10/02/18 01:12 VBG Base Excess -2.4 mmol/L (0.0-2.0) L 10/02/18 01:12 VBG Potassium 3.8 mmol/L (3.6-5.2) 10/02/18 01:12 Sodium 139.0 mmol/L (132-148) 10/02/18 01:12 Chloride 106.0 mmol/L (98-107) 10/02/18 01:12 Glucose 220 mg/dL (65-105) H 10/02/18 01:12 Lactate 4.8 mmol/L (0.7-2.1) H* 10/02/18 01:12 FiO2 21.0 % 10/02/18 01:12 Crit Value Called To Yue woods 10/02/18 01:12 Crit Value Called By Stacy 10/02/18 01:12 Crit Value Read Back Y 10/02/18 01:12 Blood Gas Notified Time 116 10/02/18 01:12 Sodium 138 mmol/l (132-148) 10/03/18 05:12 Potassium 3.7 MMOL/L (3.6-5.0) 10/03/18 05:12 Chloride 106 mmol/L (98-107) 10/03/18 05:12 Carbon Dioxide 22 mmol/L (22-30) 10/03/18 05:12 Anion Gap 14 (10-20) 10/03/18 05:12 BUN 36 mg/dl (7-17) H 10/03/18 05:12 Creatinine 1.9 mg/dl (0.7-1.2) H 10/03/18 05:12 Est GFR ( Amer) 31 10/03/18 05:12 Est GFR (Non-Af Amer) 26 10/03/18 05:12 POC Glucose (mg/dL) 137 mg/dL (65-110) H 10/03/18 16:22 Random Glucose 126 mg/dL (65-105) H 10/03/18 05:12 Hemoglobin A1c 6.9 % (4.2-6.5) H 10/03/18 05:12 Lactic Acid 2.0 mmol/L (0.7-2.1) 10/03/18 05:12 Calcium 8.0 mg/dL (8.4-10.2) L 10/03/18 05:12 Iron 66 ug/dL (37-170) 10/02/18 11:20 TIBC 301 ug/dL (250-450) 10/02/18 11:20 % Saturation 22 % (20-55) 10/02/18 11:20 Ferritin 65.0 ng/Ml (11.1-264.0) 10/02/18 10:00 Total Bilirubin 0.2 mg/dl (0.2-1.3) 10/03/18 05:12 GGT 48 U/L (8-78) 10/03/18 05:12 AST 17 U/L (14-36) 10/03/18 05:12 ALT 23 U/L (9-52) 10/03/18 05:12 Alkaline Phosphatase 36 U/L (38-126) L D 10/03/18 05:12 Total Protein 6.2 G/DL (6.3-8.2) L 10/03/18 05:12 Albumin 3.5 g/dL (3.5-5.0) 10/03/18 05:12 Globulin 2.8 gm/dL (2.2-3.9) 10/03/18 05:12 Albumin/Globulin Ratio 1.3 (1.0-2.1) 10/03/18 05:12 Triglycerides 166 mg/DL (0-149) H 10/02/18 06:45 Cholesterol 208 mg/dL (0-199) H 10/02/18 06:45 LDL Cholesterol Direct 120 mg/dL (0-129) 10/02/18 06:45 HDL Cholesterol 47 MG/DL (30-70) 10/02/18 06:45 Vitamin B12 343 pg/mL (239-931) 10/02/18 10:00 25-OH Vitamin D Total 18.1 NG/ML (30.0-100.0) L 10/02/18 11:20 RBC Folate 709 ng/mL RBC (>280) 10/02/18 11:20 Thyroxine (T4) 7.72 ug/dl (5.5-11.0) 10/02/18 10:00 Total T3 0.573 nmol/L (1.49-2.60) L 10/02/18 10:00 TSH 3rd Generation 0.88 mIU/ML (0.46-4.68) 10/02/18 06:45 Venous Blood Potassium 3.8 mmol/L (3.6-5.2) 10/02/18 01:12 Urine Color Straw (YELLOW) 10/03/18 13:25 Urine Clarity Clear (Clear) 10/03/18 13:25 Urine pH 5.0 (5.0-8.0) 10/03/18 13:25 Ur Specific [place] 1.005 (1.003-1.030) 10/03/18 13:25 Urine Protein Negative mg/dL (NEGATIVE) 10/03/18 13:25 Urine Glucose (UA) Neg mg/dL (NEGATIVE) 10/03/18 13:25 Urine Ketones Negative mg/dL (NEGATIVE) 10/03/18 13:25 Urine Blood Negative (NEGATIVE) 10/03/18 13:25 Urine Nitrate Negative (NEGATIVE) 10/03/18 13:25 Urine Bilirubin Negative (NEGATIVE) 10/03/18 13:25 Urine Urobilinogen 0.2-1.0 mg/dL (0.2-1.0) 10/03/18 13:25 Ur Leukocyte Esterase Neg Julissa/uL (Negative) 10/03/18 13:25 Urine RBC (Auto) < 1 /hpf (0-3) 10/03/18 13:25 Urine Microscopic WBC 2 /hpf (0-5) 10/03/18 13:25 Ur Squamous Epith Cells < 1 /hpf (0-5) 10/03/18 13:25 Urine Osmolality 230 mosm/kg (300-1000) L 10/03/18 13:25 Ur Random Creatinine 26.9 mg/dL 10/03/18 13:25 Ur Random Sodium 56 meq/L 10/03/18 13:25 Ur Random Potassium 5.6 mmol/L 10/03/18 13:25 - Hospital Course Hospital Course: 73 y/o F with a PMHx of DM2, HTN, HLD and hypothyroidism was admitted for ev aluation and management of hyperglycemia and lactic acidosis suspected to be due to Metformin overdose. Lactic Acidosis resolved, today's lactate 2.0-WNL. DM2 with hyperglycemia found, HbA1c 6.9-controlled. Endocrinology consulted, Dr Ibarra, Januvia 100mg PO initiated. Acute kidney injury, nephrology consulted, recommended to stop lisinoril and HCTZ. Pt afebrile, tolerating PO, stable, discharged home. Needs to f/u with PCP and nephologist. --Metformin, HCTZ and Lisinopril were stopped. - Date & Time of H&P Date of H&P: 10/02/18 Time of H&P: 08:29 Discharge Exam - Additional Findings Additional findings: - Constitutional Appears: No Acute Distress - Head Exam Head Exam: ATRAUMATIC, NORMAL INSPECTION - Eye Exam Eye Exam: EOMI, Normal appearance - ENT Exam ENT Exam: Mucous Membranes Moist - Neck Exam Neck exam: Positive for: Full Rom, Normal Inspection. Negative for: Meningismus - Respiratory Exam Respiratory Exam: Clear to Auscultation Bilateral, NORMAL BREATHING PATTERN - Cardiovascular Exam Cardiovascular Exam: REGULAR RHYTHM, +S1, +S2 - GI/Abdominal Exam GI & Abdominal Exam: Soft. absent: Distended, Guarding, Rebound, Tenderness - Extremities Exam Extremities exam: Positive for: full ROM. Negative for: calf tenderness - Back Exam Back exam: absent: CVA tenderness (L), CVA tenderness (R) - Neurological Exam Neurological exam: Alert, Oriented x3 Discharge Plan - Discharge Medications Prescriptions: SITagliptin [Januvia] 100 mg PO DAILY #30 tab - Follow Up Plan Condition: FAIR Disposition: HOME/ ROUTINE Instructions: Accidental Overdose (DC) Additional Instructions: F/U with PCP and nephology within 1 week. Referrals: Erlin Arnett MD [Staff Provider] - Ac Rich MD [Family Provider] -
== END 2018-10-03 17:45 | disposition home or self-care (01) | DRG 918 ==
LOC: H.ER 22:18 → H.ERHOLD 10-02 01:58 → H.TEL 10-02 04:11
PROVIDERS: ADMIT Internal Medicine; ATTEND Internal Medicine
DX: T38.3X1A Poisoning by insulin and oral hypoglycemic [antidiabetic] drugs, accidental (unintentional), initial encounter (principal); N17.9 Acute kidney failure, unspecified; E87.2 Acidosis; E86.0 Dehydration; E11.65 Type 2 diabetes mellitus with hyperglycemia; G89.29 Other chronic pain; E78.5 Hyperlipidemia, unspecified; I10 Essential (primary) hypertension; E66.9 Obesity, unspecified; Z68.38 Body mass index [BMI] 38.0-38.9, adult; E03.9 Hypothyroidism, unspecified; E78.1 Pure hyperglyceridemia; E78.00 Pure hypercholesterolemia, unspecified; Z79.84 Long term (current) use of oral hypoglycemic drugs; Y92.009 Unspecified place in unspecified non-institutional (private) residence as the place of occurrence of the external cause

== ENCOUNTER 2018-10-17 11:19 | Day surgery (SDC) | payer MEDICARE ==
[2018-10-17 12:31] VITALS: BMI 33.8
[2018-10-17] MEDS ORDERED: Lactated Ringer's 500 ML IV ONE (12:37)
[2018-10-17] MEDS ORDERED: Propofol 10 mg/ml Inj (20 ML) ONE (13:34)
[2018-10-17 14:12] VITALS: RESP 20
[2018-10-17 14:24] VITALS: BP 116/70; PULSE 72; TEMP 98; O2SAT 99
== END 2018-10-17 14:31 | disposition home or self-care (01) ==
LOC: H.ENDO 11:19
PROVIDERS: ATTEND Internal Medicine Gastroenterology
DX: K30 Functional dyspepsia (principal); K44.9 Diaphragmatic hernia without obstruction or gangrene; K31.89 Other diseases of stomach and duodenum; E11.9 Type 2 diabetes mellitus without complications
CPT/HCPCS: 43239; 82948; 88305; J2001; J2704; J7120